=== PATIENT | male | born 1960 | race Caucasian/White ===

== ENCOUNTER 2017-02-02 05:40 | Emergency (ER) | payer OTHER ==
[2017-02-02 06:18] LABS: Hematocrit 46.4 % (42.0-52.0); Hemoglobin 16.1 gm/dL (13.5-18.0); Mean Cell Volume 87.9 fl (78-100); Mean Corpuscular Hemoglobin 30.5 pg (27-31); Mean Corpuscular Hgb Conc 34.7 g/dl (32-36); Mean Platelet Volume 9.1 fl (6.0-9.5); Neutrophil # 5.3 K/mm3 (1.3-6.0); Neutrophil % 61.5 % (42-75.0); Platelet Count 239 K/mm3 (150-450); Red Blood Count 5.28 M/mm3 (4.7-6.0); White Blood Count 8.6 K/mm3 (4.0-10.5)
[2017-02-02 06:29] LABS: Hemoglobin A1C 6.1 % (4.00-6.0)
[2017-02-02 06:39] LABS: Albumin * 3.6 gm/dl (3.4-5.0); Anion Gap 12.9 mmol/L (6.8-13.8); BUN/Creatinine Ratio 26.3 (9.0-21.6); Bilirubin, Total 0.9 mg/dL (0.0-1.1); Ca. Corrected For Albumin 8.5 mg/dL (8.4-10.2); Calcium * 8.5 mg/dL (7.9-10.9); Carbon Dioxide 27.4 mmol/L (24-32.6); Potassium 4.3 mmol/L (3.4-4.6); Total Protein 6.9 gm/dL (6.2-8.2)
--- OUTSIDE RECORDS SUMMARY | 2017-02-02 06:48 | XMS REPORT | Continuity of Care Document ---
:1960 Author Organization [facility] ([facility]) Address [address] [place] [address] Phone [phone] Care Team Providers Name Role Phone Provider, No-Primary Care Primary Care Provider Unavailable Source Comments This disclosure is being made pursuant to the Care Everywhere program, applicable federal and state laws, and may not contain all informaitonavailable regarding this patient.[facility] ([facility]) Active Allergies and Adverse Reactions No Known Allergies Current Medications Prescription Sig. Disp. Refills Start Date End Date Status risperiDONE (RISPERDAL) Take 0.5 mg by mouth Active 0.5 mg tablet at bedtime. Indications: DEPRESSION ASSOCIATED WITH MANIC DEPRESSIVE DISORDER mirtazapine (REMERON) Take 15 mg by mouth Active 15 mg tablet at bedtime. Indications: MAJOR DEPRESSIVE DISORDER, POST TRAUMATIC STRESS DISORDER aspirin 81 mg tablet Take 81 mg by mouth Active daily. Indications: MYOCARDIAL INFARCTION PREVENTION MULTIVITAMIN PO Take 1 Tab by mouth Active daily. DOCOSAHEXANOIC ACID/EPA Take 2 Tabs by mouth Active (FISH OIL PO) at bedtime. acetaminophen (TYLENOL) Take 325 mg by mouth Active 325 mg tablet every 4 hours as needed. 1-2 tabs every 4-6 hours PRN: pain or temp Indications: FEVER, PAIN ibuprofen 200 mg tablet Take 200 mg by mouth Active every 4 hours as needed. 1-2 tabs every 4-6 hours PRN inflammation or pain Indications: FEVER, PAIN loperamide 2 mg tablet Take 2 mg by mouth 4 Active times daily as needed. 1 tab after first loose stool then 1mg after each loose stool no more than 4mg per day PRN diarrhea Indications: DIARRHEA magnesium hydroxide Take 30 mL by mouth Active (MILK OF MAGNESIA at bedtime as CONCENTRATE) 2,400 needed. Indications: mg/10 mL suspension CONSTIPATION CALCIUM CARBONATE/MAG Take 15 mL by mouth Active HYDROX (MYLANTA PO) every 2 hours as needed. PRN upset stomach diphenhydrAMINE Take 25 mg by mouth Active (BENADRYL) 25 mg every 6 hours as capsule needed. Pt can take 1-2 po every 6 hours PRN cold symptoms/agitation Indications: ALLERGIC REACTIONS, ALLERGIC RHINITIS, COUGH, SNEEZING GUAIFENESIN/DEXTROMETHO Take 5-10 mL by Active RPHAN (ROBITUSSIN-DM mouth every 4 hours PO) as needed. 1-2 tsp every 4 hours PRN cough Eucalyptus-Menthol by Mucous Membrane Active (COUGH DROPS) Lozg route every 1 hour as needed. 1 cough drop every hour up to 6 cough drops per day PRN cough ciprofloxacin 500 mg Take 1 Tab by mouth 15 Tab 0 09/11/2012 Active tablet 2 times daily. 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 Pulse 80 09/11/2012 10:37 AM LEAD INVESTIGATOR Temperature 37.1 C (98.7 F) 09/11/2012 10:37 AM LEAD INVESTIGATOR Respiratory Rate 16 09/11/2012 10:37 AM LEAD INVESTIGATOR Height 1.803 m (5' 11") 09/11/2012 10:37 AM LEAD INVESTIGATOR Weight 118.842 kg (262 lb) 09/11/2012 10:37 AM LEAD INVESTIGATOR Body Mass Index 36.56 09/11/2012 10:37 AM LEAD INVESTIGATOR Oxygen Saturation - - Plan of Care Health Maintenance Due Date Last Done Comments HCV Screening 1960 Hepatitis B Vaccine (1 of 3 - Primary Series) 1960 Tdap Vaccine 1972 Lipid Disorder Screening 1979 MMR Vaccine 1979 Td Vaccine 1979 Colonoscopy 2011 Prostate Cancer Screening 2011 Influenza Vaccine: Seasonal (#1) 04/30/2016 Results from Last 3 Months Not on file
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
[2017-02-02 08:16] LABS: Urine Bilirubin Negative (NEGATIVE); Urine Blood Negative /ul (NEGATIVE); Urine Ketone Negative (NEGATIVE); Urine Nitrite Negative (NEGATIVE); Urine Protein Negative (NEGATIVE); Urine Urobilinogen Normal (NORMAL)
[2017-02-02 08:26] LABS: Urine Appearance Clear; Urine Color Yellow
[2017-02-02 08:27] LABS: Urine Bacteria None Seen; Urine RBC None Seen /hpf (0-5); Urine WBC 0-5 /hpf (0-5)
[2017-02-02] MEDS ORDERED: ACYCLOVIR 200 MG CAPSULE PO ONE (08:36)
[2017-02-02] MEDS ORDERED: predniSONE 20 MG TABLET PO ONE (08:36)
[2017-02-02] MEDS ORDERED: ACYCLOVIR 200 MG CAPSULE ONE (08:49)
[2017-02-02] MEDS ORDERED: predniSONE 20 MG TABLET ONE (08:49)
[2017-02-02 15:39] VITALS: BP 176/101
== END 2017-02-02 09:08 | disposition home or self-care (01) ==
LOC: ER 05:40
DX: G51.0 Bell's palsy (principal)

== ENCOUNTER 2020-07-05 14:38 | Inpatient (IN) ==
[2020-07-05] MEDS ORDERED: NORMAL SALINE 1,000 ML IV ONE ×3 (15:26→18:50)
[2020-07-05 16:24] LABS: Hematocrit 52.8 % (42.0-52.0); Hemoglobin 17.6 gm/dL (13.5-18.0); Mean Cell Volume 89.5 fl (78-100); Mean Corpuscular Hemoglobin 29.8 pg (27-31); Mean Corpuscular Hgb Conc 33.3 g/dl (32-36); Mean Platelet Volume 9.8 fl (8-11.3); Neutrophil # 11.9 K/mm3 (1.3-6.0); Neutrophil % 91.5 % (42-75.0); Platelet Count 222 K/mm3 (150-450); Red Cell Distribution Width 12.3 % (11.5-14.0)
[2020-07-05 16:29] LABS: Urine Bilirubin Negative (NEGATIVE); Urine Ketone Large mg/dL (NEGATIVE); Urine Nitrite Negative (NEGATIVE); Urine Protein Negative (NEGATIVE); Urine Urobilinogen Normal (NORMAL); Urine pH 5.5 pH (5.0-7.0)
[2020-07-05 16:55] LABS: Troponin I Less than 0.017 ng/mL (0.00-0.10)
[2020-07-05 17:00] LABS: ALT 40 U/L (19-67); AST 17 U/L (0-48); Albumin * 3.1 gm/dl (3.4-5.0); Alkaline Phosphatase * 108 U/L (50-170); Anion Gap 34.9 mmol/L (6.8-13.8); BNP * 10 pg/mL (5-175); BUN/Creatinine Ratio 24.8 (9.0-21.6); Bilirubin, Total 0.9 mg/dL (0.0-1.1); Blood Urea Nitrogen 34 mg/dL (6-23); CRP 2.7 mg/dL (0.0-0.9); Ca. Corrected For Albumin 9.2 mg/dL (8.4-10.2); Calcium * 8.8 mg/dL (7.9-10.9); Chloride 99 mmol/L (97-106); Potassium 4.9 mmol/L (3.4-4.6); Sodium 134 mmol/L (132-142); Total Protein 6.7 gm/dL (6.2-8.2)
[2020-07-05 17:02] LABS: Urine Appearance Clear (CLEAR); Urine Blood 5 /ul (NEGATIVE); Urine Color Yellow
[2020-07-05 17:03] LABS: Urine Bacteria TRACE; Urine Fine Granular Cast 0-5 /LPF; Urine RBC TRACE /hpf (0-5); Urine WBC TRACE /hpf (0-5)
[2020-07-05] MEDS ORDERED: INSULIN REGULAR, HUMAN 100 UNITS/ML VIAL IV ONE (17:20)
[2020-07-05 17:25] LABS: Glucose * 508 mg/dL (70-110)
--- NOTE | 2020-07-05 18:57 | ERNOTE ---
Medical Problem HPI - Narrative Date of Service: 07/05/20 - General Chief Complaint: Diabetes Related Problem Time Seen by Provider: 07/05/20 15:21 Source: patient Exam Limitations: no limitations - Immun/Allergies/Home Medications Immunizations: IMMUNIZATION HX Immunizations Up to Date Yes History of Influenza Vaccine Yes Hx Pneumococcal Vaccination No Allergies/Adverse Reactions: Allergies No Known Allergies Allergy (Verified 07/05/20 15:25) Home Medications: HOME MEDICATIONS Aspirin [Aspirin Enteric Coated] 81 mg PO DAILY 05/31/15 [Last Taken Unknown] Multivitamins [Multivitamin Ted] 1 cap PO DAILY 05/31/15 [Last Taken Unknown] [place]-3/Dha/Epa/Fish Oil [Fish Oil 500 mg Softgel] 1 ea PO DAILY 05/31/15 [Last Taken Unknown] Saw [place]/Pumpkin/Pyg/Zn/B6 [Hm Saw [place] Complex Sftgel] 1 ea PO BID 05/31/15 [Last Taken Unknown] asmita.stocking,knee,reg,xlrg See Dose Instructions .ROUTE .MEDSUPPLY #12 ea 11/12/18 [Last Taken Unknown] arginine HCl (L-arginine) 1,000 mg tablet 1,000 mg PO BID #60 tab 08/03/19 [Last Taken Unknown] amlodipine 5 mg-benazepril 20 mg capsule 1 cap PO DAILY #90 cap 02/01/20 [Last Taken Unknown] atorvastatin 20 mg tablet 20 mg PO DAILY #90 tab 02/01/20 [Last Taken Unknown] ciclopirox 8 % topical solution 1 applic TP HS 84 Days #6.6 ml 02/17/20 [Last Taken Unknown] naproxen 500 mg tablet 500 mg PO BID PRN #60 tab 04/29/20 [Last Taken Unknown] - History of Present History Narrative: patint presents to ed with c/o weakness poly dyspia polyuria Timing: constant, getting worse Severity: moderate Modifying Factors - (Improves): Present: other - nothing Modifying Factors - (Worsens): Present: other - nothing Review of Systems - Review of Systems Constitutional: Present: See HPI, weakness, fatigue, malaise EYE: Present: no symptoms reported ENT: Present: no symptoms reported Respiratory: Present: no symptoms reported Cardiology: Present: no symptoms reported Gastrointestinal/Abdominal: Present: nausea, eating less, other - drinking more Genitourinary: Present: frequency Musculoskeletal: Present: no symptoms reported Skin: Present: no symptoms reported Neurological: Present: no symptoms reported Endocrine: Present: no symptoms reported Hematologic/Lymphatic: Present: no symptoms reported Psych: Present: no symptoms reported All Other Systems: All systems neg except as marked Medical History (Last Reviewed 07/05/20 @ 16:10 by Daya Lin RN) Onychomycosis (Chronic) Hypertension (Chronic) Onset Date: Unknown Hyperlipidemia (Chronic) Onset Date: Unknown Herpes zoster (Resolved) Onset Date: Unknown Fracture, open (Resolved) Onset Date: Unknown tibia, fibula-right Epicondylitis (Resolved) Onset Date: Unknown Depression (Chronic) Onset Date: Unknown Oseguera's palsy (Chronic) Onset Date: Unknown Anxiety disorder (Chronic) Onset Date: ~2012 Right ankle pain (Resolved) Onset Date: Unknown Oseguera's palsy (Acute) Surgical History: Surgical History (Last Reviewed 07/05/20 @ 16:10 by Daya Lin RN) H/O colonoscopy Onset Date: ~2014 Dr Walker-negative. Recheck in 10 years. H/O wisdom tooth extraction Onset Date: ~2009 History of open reduction and internal fixation (ORIF) procedure Onset Date: ~1979 right lower leg Family History: Family History (Last Reviewed 07/05/20 @ 16:10 by Daya Lin RN) Father Hypertension Mother Hypertension Diabetes Crohns disease Social History: (Last Reviewed 07/05/20 @ 16:10 by Daya Lin RN) Social History: adopted: No custodial: No Marital status: Single lives independently: Yes household members: none caregiver/support person: No current occupational status: unemployed, disabled current occupation: [employer] Highest education level completed: some college, no degree Service: No Tobacco: Smoking Status: Never smoker second hand exposure: Yes Alcohol: alcohol intake: current alcohol intake frequency: holiday/special occasion Substance Use: substance use type: does not use Dietary Habits: caffeine: Yes Type: tea Exercise: frequency: does not exercise Physical Exam - Physical Exam General Appearance: Present: moderate distress, anxious Head Exam: Present: normal inspection, no evidence of injury Eye Exam: Normal inspection: bilateral, PERRL: bilateral, EOMI: bilateral Ears, Nose, Throat: Present: normal ENT inspection, normal pharynx Neck: Present: normal inspection, nontender Respiratory: Present: no respiratory distress, normal breath sounds, no accessory muscle use, chest nontender, lungs clear Cardiovascular/Chest: Present: no murmur, normal peripheral pulses, tachycardia Gastrointestinal/Abdominal: Present: normal bowel sounds, nontender, nondistended, soft, no organomegaly Back Exam: Present: normal inspection, normal range of motion, no CVA tenderness, no vertebral tenderness Extremity Exam: Present: normal inspection, non-tender, normal range of motion, no edema Neurological Exam: Present: alert, oriented, normal mood/affect, no motor/sensory deficits Skin Exam: Present: normal color, warm/dry Lymphatic Exam: Present: no adenopathy Progress - Date and Time Seen: Date and Time: 07/05/20 18:54 patient improved discussed labs with patient, recommended admission, case discussed with dr garcia, patient accepted for admission - Results and Orders Patient's Lab Results:: I have reviewed the patient's lab results. - Vital Signs Patient's Vital Signs:: I have reviewed the patient's vital signs. Vital Signs: Vital Signs 07/05/20 14:50 07/05/20 15:10 07/05/20 15:25 Temperature 35.7 C L Pulse Rate 104 H 100 94 Respiratory Rate 36 H 34 H 31 H Blood Pressure 115/82 120/77 140/87 H O2 Sat by Pulse Oximetry 97 97 96 07/05/20 15:40 07/05/20 16:10 07/05/20 16:40 Temperature Pulse Rate 91 93 89 Respiratory Rate 21 H 29 H 20 Blood Pressure 143/87 H 177/94 H O2 Sat by Pulse Oximetry 99 98 98 07/05/20 18:00 Temperature Pulse Rate 93 Respiratory Rate 16 Blood Pressure 117/50 O2 Sat by Pulse Oximetry 98 - X-Ray X-Ray #1 X-Ray: chest Interpretation: Interp. by me - no acute process - Progress/Reassessment Chief Complaint: Diabetes Related Problem Progress:: Improved - Transfer of Care Expected Disposition: Admit Plan - Plan Plan: to admit to hospital Departure Clinical Impression: Diabetic keto-acidosis - Departure Disposition: Short Term Hospital Inpatient Condition: Serious Referrals: Jaida Clements, CHIDI [Primary Care Provider] -
[2020-07-05] MEDS ORDERED: INSULIN REGULAR, HUMAN 100 UNITS in NORMAL SALINE 100 ML IV PRN ×2 (19:20)
[2020-07-05] MEDS ORDERED: NAPROXEN 500 MG TABLET PO PRN (19:29)
[2020-07-05 19:33] LABS: Glucose * 382 mg/dL (70-110)
[2020-07-05 19:48] LABS: ALT 41 U/L (19-67); AST 19 U/L (0-48); Alkaline Phosphatase * 112 U/L (50-170); Anion Gap 31.8 mmol/L (6.8-13.8); BUN/Creatinine Ratio 29.7 (9.0-21.6); Bilirubin, Total 0.8 mg/dL (0.0-1.1); Blood Urea Nitrogen 33 mg/dL (6-23); Ca. Corrected For Albumin 8.9 mg/dL (8.4-10.2); Calcium * 8.4 mg/dL (7.9-10.9); Chloride 102 mmol/L (97-106); Potassium 4.8 mmol/L (3.4-4.6); Sodium 134 mmol/L (132-142); Total Protein 6.8 gm/dL (6.2-8.2)
--- NOTE | 2020-07-05 20:05 | HP ---
Chief Complaint - Chief Complaint Date of Service: 07/05/20 Time of Service: 19:51 Chief Complaint: I have had nausea weakness and body ache for more than 4 weeks. History of Present Illness: 59-year-old male with past medical history of hypertension, anxiety disorder, depression, hyperlipidemia, morbid obesity, was evaluated in the ER after he was sent for evaluation from his PCPs office when the patient was noted to be acutely ill. Patient reports over the past 4 to 5 weeks he has felt increasingly weak and nauseous, he also reports multiple episodes of nonbloody vomiting. The patient reports he has abdominal discomfort but no abdominal pain and he has noticed that his breath has developed a fruity odor. Patient denies ever being diagnosed with diabetes or any childhood diabetes but recalls being told that he needs to watch his diet. He reports normally he is disciplined on his diet and he tries to stay active by riding his bicycle or walking, however recently he has been eating sweets and drinking fruit juices or other sugary drinks. He suspects that this might have elevated his blood sugars. Patient has never been treated with oral diabetic medications or insulin. Once in the ER the patient was found to be in diabetic ketoacidosis when ketones were discovered in his serum and he had a pH of 7.1. Patient was treated with subcutaneous insulin and was started on IV fluids which she is tolerating withou t any issues. Currently he continues to complain of stomach upset and hunger but maintained stable vitals. He denies any fever or chills or cough or any sick contacts or any ill persons. In fact the patient reports that he hardly leaves his house since the coronavirus pandemic started so he doubts he has COVID. Medical History (Last Reviewed 07/05/20 @ 16:10 by Daya Lin RN) Onychomycosis (Chronic) Hypertension (Chronic) Onset Date: Unknown Hyperlipidemia (Chronic) Onset Date: Unknown Herpes zoster (Resolved) Onset Date: Unknown Fracture, open (Resolved) Onset Date: Unknown tibia, fibula-right Epicondylitis (Resolved) Onset Date: Unknown Depression (Chronic) Onset Date: Unknown Oseguera's palsy (Chronic) Onset Date: Unknown Anxiety disorder (Chronic) Onset Date: ~2012 Right ankle pain (Resolved) Onset Date: Unknown Oseguera's palsy (Acute) Surgical History: Surgical History (Last Reviewed 07/05/20 @ 16:10 by Daya Lin RN) H/O colonoscopy Onset Date: ~2014 Dr Walker-negative. Recheck in 10 years. H/O wisdom tooth extraction Onset Date: ~2009 History of open reduction and internal fixation (ORIF) procedure Onset Date: ~1979 right lower leg Family History: Family History (Last Reviewed 07/05/20 @ 16:10 by Daya Lin RN) Father Hypertension Mother Hypertension Diabetes Crohns disease Social History: (Last Reviewed 07/05/20 @ 16:10 by Daya Lin RN) Social History: adopted: No senior care: No Marital status: Single lives independently: Yes household members: none caregiver/support person: No current occupational status: unemployed, disabled current occupation: [employer] Highest education level completed: some college, no degree Service: No Tobacco: Smoking Status: Never smoker second hand exposure: Yes Alcohol: alcohol intake: current alcohol intake frequency: holiday/special occasion Substance Use: substance use type: does not use Dietary Habits: caffeine: Yes Type: tea Exercise: frequency: does not exercise Peds Patient Hx - Developmental: No Pertinent Hx Peds Patient Hx - Medical: No Pertinent Hx Peds Patient Hx - Cardiac/Respiratory: No Pertinent Hx Peds Patient Hx - Surgical: No Surgical History Patient History - Cancer: No Hx of Cancer Review Of Systems (GEN) - Review of Systems Generalized/Overall Review: Present: Weakness EENTM: Present: No Symptoms Reported Respiratory: Present: No Symptoms Reported Cardiac: Present: No Symptoms Reported Abdominal: Present: Nausea, Vomiting Genitourinary: Present: No Symptoms Reported Musculoskeletal: Present: No Symptoms Reported Neurological: Present: No Symptoms Reported Skin: Present: No Symptoms Reported Endocrine: Present: No Symptoms Reported Immunizations: IMMUNIZATION HX Immunizations Up to Date Yes History of Influenza Vaccine Yes Hx Pneumococcal Vaccination No Allergies/Adverse Reactions: Allergies Allergy/AdvReac Type Severity Reaction Status Date / Time No Known Allergies Allergy Verified 07/05/20 15:25 Home Medications: HOME MEDICATIONS Aspirin [Aspirin Enteric Coated] 81 mg PO DAILY 05/31/15 [Last Taken Unknown] Multivitamins [Multivitamin Ted] 1 cap PO DAILY 05/31/15 [Last Taken Unknown] [place]-3/Dha/Epa/Fish Oil [Fish Oil 500 mg Softgel] 1 ea PO DAILY 05/31/15 [Last Taken Unknown] Saw [place]/Pumpkin/Pyg/Zn/B6 [Hm Saw [place] Complex [facility]] 1 ea PO BID 05/31/15 [Last Taken Unknown] asmita.stocking,knee,reg,xlrg See Dose Instructions .ROUTE .MEDSUPPLY #12 ea 11/12/18 [Last Taken Unknown] arginine HCl (L-arginine) 1,000 mg tablet 1,000 mg PO BID #60 tab 08/03/19 [Last Taken Unknown] amlodipine 5 mg-benazepril 20 mg capsule 1 cap PO DAILY #90 cap 02/01/20 [Last Taken Unknown] atorvastatin 20 mg tablet 20 mg PO DAILY #90 tab 02/01/20 [Last Taken Unknown] ciclopirox 8 % topical solution 1 applic TP HS 84 Days #6.6 ml 02/17/20 [Last Taken Unknown] naproxen 500 mg tablet 500 mg PO BID PRN #60 tab 04/29/20 [Last Taken Unknown] Exam - Exam Vital Signs: Vital Signs - Last Taken Temp 36.8 C 07/05/20 18:51 Pulse 90 07/05/20 19:39 Resp 25 H 07/05/20 19:39 BP 124/86 07/05/20 19:39 Pulse Ox 100 07/05/20 19:39 Constitutional: Present: Alert, Oriented x3, Cooperative, Well developed, No distress, Morbidly obese ENT Exam: Present: normal ENT inspection, hearing grossly normal, pharynx normal, TMs normal Eye Exam: bilateral eye: normal inspection, PERRL, EOMI Neck: Present: non-tender, full range of motion, supple, normal inspection, trachea midline Back Exam: Present: normal inspection, no CVA tenderness, no vertebral tenderness Breasts: Present: Exam deferred, Nontender Respiratory: Present: chest non-tender, lungs clear, normal breath sounds, no respiratory distress, no accessory muscle use Cardiovascular/Chest: Present: normal peripheral pulses, regular rate, rhythm, no chest tenderness, no edema, no gallop, no JVD, no murmur, no rub Peripheral Pulses: dorsalis-pedis (R): 3+, dorsalis-pedis (L): 3+ Abdomen: Present: Normal bowel sounds, soft, nontender, nondistended, no rebound tenderness, no hepatospenomegaly, no masses, obese /Rectal: Present: Exam deferred Extremity: Present: normal range of motion, non-tender, normal inspection, no calf tenderness, lower extremity edema - 2+ bilateral lower extremity edema Skin Exam: Present: warm/dry, no cyanosis, other - Patient appears flushed Lymphatic: Present: no adenopathy Neurologic: Present: mixed crop farmer II-XII nml as tested, normal cerebellar test, no motor/sensory deficits, alert, normal mood/affect, oriented x 3 Appearance: Present: appropriate appearance, appropriate insight, neat, no memory impairment Eye contact: Present: cooperative, good eye contact, normal speech Thoughts: Present: normal thought pattern, no apparent hallucination Diagnostic Studies: Abnormal Lab Results 07/05/20 07/05/20 07/05/20 Range/Units 15:23 15:47 16:10 WBC 13.0 H (4.0-10.5) K/mm3 Hct 52.8 H (42.0-52.0) % Immature Gran % (Auto) 0.50 H (0.001-0.429) % Immature Gran # (Auto) 0.06 H (0.000-0.0310) K/mm3 Neutrophils % 91.5 H (42-75.0) % Lymphocytes % 3.0 L (20-51) % Neutrophils # 11.9 H (1.3-6.0) K/mm3 Lymphocytes # 0.39 L (1.5-3.5) k/mm3 pCO2 Less than 14.9 L* (35.0-48.0) mmHg pO2 130.1 H (83.0-108.0) mmHg HCO3 4.5 L (21.0-28.0) mmol/L Total CO2 4.9 L (19.0-24.0) mmol/L Base Excess -20.8 L (-2.0-3.0) mmol/L ABG pH 7.18 L* (7.35-7.45) Potassium (3.4-4.6) mmol/L Carbon Dioxide (24-32.6) mmol/L Anion Gap (6.8-13.8) mmol/L BUN (6-23) mg/dL Est GFR (Non-Af Amer) (60-130) mL/min BUN/Creatinine Ratio (9.0-21.6) Random Glucose (70-110) mg/dL C-Reactive Prot, Quant (0.0-0.9) mg/dL Albumin (3.4-5.0) gm/dl Procalcitonin (0.05-0.50) ng/mL Urine Glucose (UA) >=1000 H (NEGATIVE) mg/dL Urine Blood 5 H (NEGATIVE) /ul Fine Granular Casts 0-5 H (NONE) /LPF Serum Ketones (NEGATIVE) 07/05/20 07/05/20 07/05/20 Range/Units 16:10 16:10 18:15 WBC (4.0-10.5) K/mm3 Hct (42.0-52.0) % Immature Gran % (Auto) (0.001-0.429) % Immature Gran # (Auto) (0.000-0.0310) K/mm3 Neutrophils % (42-75.0) % Lymphocytes % (20-51) % Neutrophils # (1.3-6.0) K/mm3 Lymphocytes # (1.5-3.5) k/mm3 pCO2 (35.0-48.0) mmHg pO2 (83.0-108.0) mmHg HCO3 (21.0-28.0) mmol/L Total CO2 (19.0-24.0) mmol/L Base Excess (-2.0-3.0) mmol/L ABG pH (7.35-7.45) Potassium 4.9 H 4.8 H (3.4-4.6) mmol/L Carbon Dioxide Less than 5.0 L Less than 5.0 L (24-32.6) mmol/L Anion Gap 34.9 H 31.8 H (6.8-13.8) mmol/L BUN 34 H D 33 H (6-23) mg/dL Est GFR (Non-Af Amer) 57 L D (60-130) mL/min BUN/Creatinine Ratio 24.8 H 29.7 H (9.0-21.6) Random Glucose 508 H 382 H (70-110) mg/dL C-Reactive Prot, Quant 2.7 H (0.0-0.9) mg/dL Albumin 3.1 L 3.0 L (3.4-5.0) gm/dl Procalcitonin 0.00 L (0.05-0.50) ng/mL Urine Glucose (UA) (NEGATIVE) mg/dL Urine Blood (NEGATIVE) /ul Fine Granular Casts (NONE) /LPF Serum Ketones Positive - 40mg/dl H (NEGATIVE) Laboratory Results WBC 13.0 K/mm3 (4.0-10.5) H 07/05/20 16:10 RBC 5.90 M/mm3 (4.7-6.0) 07/05/20 16:10 Hgb 17.6 gm/dL (13.5-18.0) 07/05/20 16:10 Hct 52.8 % (42.0-52.0) H 07/05/20 16:10 MCV 89.5 fl (78-100) 07/05/20 16:10 MCH 29.8 pg (27-31) 07/05/20 16:10 MCHC 33.3 g/dl (32-36) 07/05/20 16:10 RDW 12.3 % (11.5-14.0) 07/05/20 16:10 Plt Count 222 K/mm3 (150-450) 07/05/20 16:10 MPV 9.8 fl (8-11.3) 07/05/20 16:10 Immature Gran % (Auto) 0.50 % (0.001-0.429) H 07/05/20 16:10 Immature Gran # (Auto) 0.06 K/mm3 (0.000-0.0310) H 07/05/20 16:10 Neutrophils % 91.5 % (42-75.0) H 07/05/20 16:10 Lymphocytes % 3.0 % (20-51) L 07/05/20 16:10 Monocytes % 4.8 % (0.0-9) 07/05/20 16:10 Eosinophils % 0.0 % (0.0-3.0) 07/05/20 16:10 Basophils % 0.2 % (0.0-1.0) 07/05/20 16:10 Nucleated RBC % 0.0 k/mm3 (0-1) 07/05/20 16:10 Neutrophils # 11.9 K/mm3 (1.3-6.0) H 07/05/20 16:10 Lymphocytes # 0.39 k/mm3 (1.5-3.5) L 07/05/20 16:10 Monocytes # 0.6 k/mm3 (0.0-1.0) 07/05/20 16:10 Eosinophils # 0.0 k/mm3 (0.0-0.7) 07/05/20 16:10 Absolute Basophils 0.0 k/mm3 (0.0-0.1) 07/05/20 16:10 pCO2 Less than 14.9 mmHg (35.0-48.0) L* 07/05/20 15:47 pO2 130.1 mmHg (83.0-108.0) H 07/05/20 15:47 HCO3 4.5 mmol/L (21.0-28.0) L 07/05/20 15:47 Total CO2 4.9 mmol/L (19.0-24.0) L 07/05/20 15:47 Base Excess -20.8 mmol/L (-2.0-3.0) L 07/05/20 15:47 ABG pH 7.18 (7.35-7.45) L* 07/05/20 15:47 ABG O2 Sat (Measured) 98.0 % (94.0-98.0) 07/05/20 15:47 Sodium 134 mmol/L (132-142) 07/05/20 18:15 Plasma Sodium 138 mmol/L (130-142) 07/05/20 18:15 Potassium 4.8 mmol/L (3.4-4.6) H 07/05/20 18:15 Chloride 102 mmol/L (97-106) 07/05/20 18:15 Carbon Dioxide Less than 5.0 mmol/L (24-32.6) L 07/05/20 18:15 Anion Gap 31.8 mmol/L (6.8-13.8) H 07/05/20 18:15 BUN 33 mg/dL (6-23) H 07/05/20 18:15 Creatinine 1.11 mg/dL (0.4-1.4) 07/05/20 18:15 Est GFR (Non-Af Amer) 72 mL/min (60-130) D 07/05/20 18:15 BUN/Creatinine Ratio 29.7 (9.0-21.6) H 07/05/20 18:15 Random Glucose 382 mg/dL (70-110) H 07/05/20 18:15 Lactic Acid, Venous 1.5 mmol/L (0.4-2.0) 07/05/20 16:10 Calcium 8.4 mg/dL (7.9-10.9) 07/05/20 18:15 Calcium Adj for Albumin 8.9 mg/dL (8.4-10.2) 07/05/20 18:15 Total Bilirubin 0.8 mg/dL (0.0-1.1) 07/05/20 18:15 AST 19 U/L (0-48) 07/05/20 18:15 ALT 41 U/L (19-67) 07/05/20 18:15 Alkaline Phosphatase 112 U/L (50-170) 07/05/20 18:15 Troponin I Less than 0.017 ng/mL (0.00-0.10) 07/05/20 16:10 C-Reactive Prot, Quant 2.7 mg/dL (0.0-0.9) H 07/05/20 16:10 B-Natriuretic Peptide 10 pg/mL (5-175) 07/05/20 16:10 Total Protein 6.8 gm/dL (6.2-8.2) 07/05/20 18:15 Albumin 3.0 gm/dl (3.4-5.0) L 07/05/20 18:15 Procalcitonin 0.00 ng/mL (0.05-0.50) L 07/05/20 16:10 Urine Color Yellow 07/05/20 15:23 Urine Appearance Clear (CLEAR) 07/05/20 15:23 Urine pH 5.5 pH (5.0-7.0) 07/05/20 15:23 Ur Specific [place] 1.020 SP.GR. (1.005-1.030) 07/05/20 15:23 Urine Protein Negative mg/dL (NEGATIVE) 07/05/20 15:23 Urine Glucose (UA) >=1000 mg/dL (NEGATIVE) H 07/05/20 15:23 Urine Ketones Large mg/dL (NEGATIVE) 07/05/20 15:23 Urine Blood 5 /ul (NEGATIVE) H 07/05/20 15:23 Urine Nitrate Negative (NEGATIVE) 07/05/20 15:23 Urine Bilirubin Negative mg/dl (NEGATIVE) 07/05/20 15:23 Urine Urobilinogen Normal EU/dl (NORMAL) 07/05/20 15:23 Ur Leukocyte Esterase Negative /ul (NEGATIVE) 07/05/20 15:23 Urine RBC Trace /hpf (0-5) 07/05/20 15:23 Urine WBC Trace /hpf (0-5) 07/05/20 15:23 Ur Epithelial Cells Trace /hpf (0-5) 07/05/20 15:23 Urine Bacteria Trace (NONE) 07/05/20 15:23 Fine Granular Casts 0-5 /LPF (NONE) H 07/05/20 15:23 Urine Culture Comments No culture indicated 07/05/20 15:23 Serum Ketones Positive - 40mg/dl (NEGATIVE) H 07/05/20 16:10 Influenza Type A Ag Negative (NEGATIVE) 07/05/20 15:54 Influenza Type B Ag Negative (NEGATIVE) 07/05/20 15:54 Assessment/Plan - Narrative Narrative: Patient was evaluated and medical chart was reviewed and decision to admit to [facility] for a diagnosis of diabetic ketoacidosis was made. Patient is currently receiving IV fluids and he was restarted on her insulin drip in an attempt to resolve his DKA. He has a significantly elevated anion gap and his blood sugars are still elevated, so we will monitor him with a CMP every 4 hours. We will also order periodic ABGs in order to evaluate his blood gases and to ensure resolution of his acidosis. Chest x-ray was negative for any acute findings and his UA was negative for UTI, the patient also denies any recent fever or chills so it does not appear at the moment that acute infection is the cause of his DKA. It is very possible that the patient had diabetes that was uncontrolled for prolonged period of time which was compounded by possible acute gastroenteritis sending him into DKA. But what ever the cause we will keep him overnight in order to resolve the DKA and for close monitoring. - Assessment/Plan (1) Nausea & vomiting Problem: Acute (2) Diabetic keto-acidosis Problem: Acute (3) Hypertension Problem: Chronic Qualifiers: (4) Hyperlipidemia Problem: Chronic Qualifiers:
[2020-07-05] MEDS ORDERED: INSULIN REGULAR, HUMAN 100 UNITS/ML VIAL ONE (21:02)
[2020-07-05] MEDS: PANTOPRAZOLE SODIUM 40 MG in NORMAL SALINE 100 ML IV SCH (21:30)
[2020-07-05] MEDS: CICLOPIROX APPL TP SCH (21:34)
[2020-07-05] MEDS: ARGININE 1000 MG PO SCH (21:34)
[2020-07-05] MEDS: POTASSIUM CHLORIDE 20 MEQ in NORMAL SALINE 1,000 ML IV SCH (21:53)
[2020-07-05 23:41] LABS: Albumin * 2.8 gm/dl (3.4-5.0); Anion Gap 26.8 mmol/L (6.8-13.8); Bilirubin, Total 0.6 mg/dL (0.0-1.1); Ca. Corrected For Albumin 8.3 mg/dL (8.4-10.2); Calcium * 7.7 mg/dL (7.9-10.9); Carbon Dioxide 9.5 mmol/L (24-32.6); Potassium 4.3 mmol/L (3.4-4.6); Total Protein 6.1 gm/dL (6.2-8.2)
[2020-07-06 03:40] LABS: Albumin * 2.7 gm/dl (3.4-5.0); Anion Gap 22.6 mmol/L (6.8-13.8); BUN/Creatinine Ratio 25.5 (9.0-21.6); Bilirubin, Total 0.7 mg/dL (0.0-1.1); Ca. Corrected For Albumin 8.7 mg/dL (8.4-10.2); Carbon Dioxide 13.8 mmol/L (24-32.6); Potassium 4.4 mmol/L (3.4-4.6)
[2020-07-06 06:23] LABS: Hematocrit 45.8 % (42.0-52.0); Hemoglobin 15.6 gm/dL (13.5-18.0); Mean Cell Volume 87.7 fl (78-100); Mean Corpuscular Hemoglobin 29.9 pg (27-31); Mean Corpuscular Hgb Conc 34.1 g/dl (32-36); Mean Platelet Volume 9.4 fl (8-11.3); Neutrophil # 8.9 K/mm3 (1.3-6.0); Neutrophil % 83.2 % (42-75.0); Platelet Count 197 K/mm3 (150-450); Red Blood Count 5.22 M/mm3 (4.7-6.0); Red Cell Distribution Width 12.6 % (11.5-14.0); White Blood Count 10.6 K/mm3 (4.0-10.5)
[2020-07-06 06:31] LABS: Albumin * 2.7 gm/dl (3.4-5.0); Anion Gap 24.1 mmol/L (6.8-13.8); BUN/Creatinine Ratio 23.5 (9.0-21.6); Bilirubin, Total 0.7 mg/dL (0.0-1.1); Ca. Corrected For Albumin 8.7 mg/dL (8.4-10.2); Potassium 4.1 mmol/L (3.4-4.6); Total Protein 5.9 gm/dL (6.2-8.2)
[2020-07-06] MEDS: PANTOPRAZOLE SODIUM 40 MG in NORMAL SALINE 100 ML IV SCH ×2 (08:00→19:40)
[2020-07-06] MEDS: POTASSIUM CHLORIDE 20 MEQ in NORMAL SALINE 1,000 ML IV SCH ×4 (08:08→08:33)
[2020-07-06] MEDS: ARGININE 1000 MG PO SCH ×2 (08:08→21:24)
[2020-07-06] MEDS ORDERED: POTASSIUM CHLORIDE 20 MEQ in NORMAL SALINE 1,000 ML IV SCH (08:30)
[2020-07-06] MEDS ORDERED: ROSUVASTATIN CALCIUM 10 MG TABLET PO SCH (09:00)
[2020-07-06] MEDS: ASPIRIN 81 MG TABLET.DR PO SCH (09:43)
[2020-07-06] MEDS: MULTIVITAMINS 1 CAP CAPSULE PO SCH (09:43)
[2020-07-06] MEDS: OMEGA-3 FATTY ACIDS 1 CAP CAPSULE PO SCH (09:44)
[2020-07-06] MEDS: ENALAPRIL MALEATE 20 MG TABLET PO SCH (09:44)
[2020-07-06] MEDS: ONDANSETRON HCL 4 MG TABLET PO PRN ×2 (09:44→17:07)
[2020-07-06] MEDS: amLODIPine BESYLATE 5 MG TABLET PO SCH (09:44)
--- NOTE | 2020-07-06 09:50 | PN ---
Subjective - Date and Time Seen Date: 07/06/20 Time: 09:42 Subjective Narrative: I still feel weak and nauseous. Objective Objective Narrative: 60-year-old male admitted for diabetic ketoacidosis and new onset type 2 diabetes was evaluated at bedside was found to be afebrile and in no acute distress. Patient continues to complain of nausea and dry mouth, so we will administer the antiemetic that was ordered yesterday and provide oral swabs to freshen his mouth. This morning he reports still feeling weak and unwell so it was explained to him that that is expected in DKA but he is clinically improving. The patient's anion gap is closing and his blood sugar levels are now under control, he is being followed with BMPs every 4 hours as well as ABGs. His last ABGs revealed improvement of his pH as well as his other blood gases. We will keep him on insulin drip until his anion gap closes and the patient can tolerate oral intake. - Review of Systems Generalized/Overall Review: Reports: Weakness EENTM: Reports: No Symptoms Reported Respiratory: Reports: No Symptoms Reported Cardiac: Reports: No Symptoms Reported Abdominal: Reports: Nausea Genitourinary Symptoms: Reports: No Symptoms Reported Musculoskeletal Complaints: Reports: No Symptoms Reported Neurological: Reports: No Symptoms Reported Skin: Reports: No Symptoms Reported Endocrine: Reports: No Symptoms Reported - Vitals Vitals: Last Vital Signs Temp 36.4 C 07/06/20 06:36 Pulse 94 07/06/20 06:36 Resp 18 07/06/20 06:36 BP 136/84 07/06/20 06:36 Pulse Ox 98 07/06/20 06:36 - Abnormal Lab Findings Abnormal Lab Findings: Abnormal Lab Results 07/05/20 07/05/20 07/05/20 Range/Units 15:23 15:47 16:10 WBC 13.0 H (4.0-10.5) K/mm3 Hct 52.8 H (42.0-52.0) % Immature Gran % (Auto) 0.50 H (0.001-0.429) % Immature Gran # (Auto) 0.06 H (0.000-0.0310) K/mm3 Neutrophils % 91.5 H (42-75.0) % Lymphocytes % 3.0 L (20-51) % Neutrophils # 11.9 H (1.3-6.0) K/mm3 Lymphocytes # 0.39 L (1.5-3.5) k/mm3 pCO2 Less than 14.9 L* (35.0-48.0) mmHg pO2 130.1 H (83.0-108.0) mmHg HCO3 4.5 L (21.0-28.0) mmol/L Total CO2 4.9 L (19.0-24.0) mmol/L Base Excess -20.8 L (-2.0-3.0) mmol/L ABG pH 7.18 L* (7.35-7.45) Sodium (132-142) mmol/L Plasma Sodium (130-142) mmol/L Potassium (3.4-4.6) mmol/L Chloride (97-106) mmol/L Carbon Dioxide (24-32.6) mmol/L Anion Gap (6.8-13.8) mmol/L BUN (6-23) mg/dL Est GFR (Non-Af Amer) (60-130) mL/min BUN/Creatinine Ratio (9.0-21.6) Random Glucose (70-110) mg/dL Calcium (7.9-10.9) mg/dL Calcium Adj for Albumin (8.4-10.2) mg/dL C-Reactive Prot, Quant (0.0-0.9) mg/dL Total Protein (6.2-8.2) gm/dL Albumin (3.4-5.0) gm/dl Procalcitonin (0.05-0.50) ng/mL Urine Glucose (UA) >=1000 H (NEGATIVE) mg/dL Urine Blood 5 H (NEGATIVE) /ul Fine Granular Casts 0-5 H (NONE) /LPF Serum Ketones (NEGATIVE) 07/05/20 07/05/20 07/05/20 Range/Units 16:10 16:10 18:15 WBC (4.0-10.5) K/mm3 Hct (42.0-52.0) % Immature Gran % (Auto) (0.001-0.429) % Immature Gran # (Auto) (0.000-0.0310) K/mm3 Neutrophils % (42-75.0) % Lymphocytes % (20-51) % Neutrophils # (1.3-6.0) K/mm3 Lymphocytes # (1.5-3.5) k/mm3 pCO2 (35.0-48.0) mmHg pO2 (83.0-108.0) mmHg HCO3 (21.0-28.0) mmol/L Total CO2 (19.0-24.0) mmol/L Base Excess (-2.0-3.0) mmol/L ABG pH (7.35-7.45) Sodium (132-142) mmol/L Plasma Sodium (130-142) mmol/L Potassium 4.9 H 4.8 H (3.4-4.6) mmol/L Chloride (97-106) mmol/L Carbon Dioxide Less than 5.0 L Less than 5.0 L (24-32.6) mmol/L Anion Gap 34.9 H 31.8 H (6.8-13.8) mmol/L BUN 34 H D 33 H (6-23) mg/dL Est GFR (Non-Af Amer) 57 L D (60-130) mL/min BUN/Creatinine Ratio 24.8 H 29.7 H (9.0-21.6) Random Glucose 508 H 382 H (70-110) mg/dL Calcium (7.9-10.9) mg/dL Calcium Adj for Albumin (8.4-10.2) mg/dL C-Reactive Prot, Quant 2.7 H (0.0-0.9) mg/dL Total Protein (6.2-8.2) gm/dL Albumin 3.1 L 3.0 L (3.4-5.0) gm/dl Procalcitonin 0.00 L (0.05-0.50) ng/mL Urine Glucose (UA) (NEGATIVE) mg/dL Urine Blood (NEGATIVE) /ul Fine Granular Casts (NONE) /LPF Serum Ketones Positive - 40mg/dl H (NEGATIVE) 07/05/20 07/05/20 07/06/20 Range/Units 22:57 23:22 02:47 WBC (4.0-10.5) K/mm3 Hct (42.0-52.0) % Immature Gran % (Auto) (0.001-0.429) % Immature Gran # (Auto) (0.000-0.0310) K/mm3 Neutrophils % (42-75.0) % Lymphocytes % (20-51) % Neutrophils # (1.3-6.0) K/mm3 Lymphocytes # (1.5-3.5) k/mm3 pCO2 19.1 L* 20.6 L (35.0-48.0) mmHg pO2 121.0 H (83.0-108.0) mmHg HCO3 5.9 L 9.6 L (21.0-28.0) mmol/L Total CO2 6.5 L 10.2 L (19.0-24.0) mmol/L Base Excess -21.6 L -14.5 L (-2.0-3.0) mmol/L ABG pH 7.11 L* 7.28 L (7.35-7.45) Sodium (132-142) mmol/L Plasma Sodium 145 H (130-142) mmol/L Potassium (3.4-4.6) mmol/L Chloride 110 H (97-106) mmol/L Carbon Dioxide 9.5 L (24-32.6) mmol/L Anion Gap 26.8 H (6.8-13.8) mmol/L BUN 29 H (6-23) mg/dL Est GFR (Non-Af Amer) (60-130) mL/min BUN/Creatinine Ratio 25.0 H (9.0-21.6) Random Glucose 259 H D (70-110) mg/dL Calcium 7.7 L (7.9-10.9) mg/dL Calcium Adj for Albumin 8.3 L (8.4-10.2) mg/dL C-Reactive Prot, Quant (0.0-0.9) mg/dL Total Protein 6.1 L (6.2-8.2) gm/dL Albumin 2.8 L (3.4-5.0) gm/dl Procalcitonin (0.05-0.50) ng/mL Urine Glucose (UA) (NEGATIVE) mg/dL Urine Blood (NEGATIVE) /ul Fine Granular Casts (NONE) /LPF Serum Ketones (NEGATIVE) 07/06/20 07/06/20 07/06/20 Range/Units 03:10 06:15 06:15 WBC 10.6 H (4.0-10.5) K/mm3 Hct (42.0-52.0) % Immature Gran % (Auto) 0.50 H (0.001-0.429) % Immature Gran # (Auto) 0.05 H (0.000-0.0310) K/mm3 Neutrophils % 83.2 H (42-75.0) % Lymphocytes % 10.3 L (20-51) % Neutrophils # 8.9 H (1.3-6.0) K/mm3 Lymphocytes # 1.09 L (1.5-3.5) k/mm3 pCO2 (35.0-48.0) mmHg pO2 (83.0-108.0) mmHg HCO3 (21.0-28.0) mmol/L Total CO2 (19.0-24.0) mmol/L Base Excess (-2.0-3.0) mmol/L ABG pH (7.35-7.45) Sodium 143 H (132-142) mmol/L Plasma Sodium 143 H 144 H (130-142) mmol/L Potassium (3.4-4.6) mmol/L Chloride 110 H 111 H (97-106) mmol/L Carbon Dioxide 13.8 L 12.0 L (24-32.6) mmol/L Anion Gap 22.6 H 24.1 H (6.8-13.8) mmol/L BUN 27 H 24 H (6-23) mg/dL Est GFR (Non-Af Amer) (60-130) mL/min BUN/Creatinine Ratio 25.5 H 23.5 H (9.0-21.6) Random Glucose 159 H D 189 H (70-110) mg/dL Calcium (7.9-10.9) mg/dL Calcium Adj for Albumin (8.4-10.2) mg/dL C-Reactive Prot, Quant (0.0-0.9) mg/dL Total Protein 6.0 L 5.9 L (6.2-8.2) gm/dL Albumin 2.7 L 2.7 L (3.4-5.0) gm/dl Procalcitonin (0.05-0.50) ng/mL Urine Glucose (UA) (NEGATIVE) mg/dL Urine Blood (NEGATIVE) /ul Fine Granular Casts (NONE) /LPF Serum Ketones (NEGATIVE) 07/06/20 Range/Units 07:17 WBC (4.0-10.5) K/mm3 Hct (42.0-52.0) % Immature Gran % (Auto) (0.001-0.429) % Immature Gran # (Auto) (0.000-0.0310) K/mm3 Neutrophils % (42-75.0) % Lymphocytes % (20-51) % Neutrophils # (1.3-6.0) K/mm3 Lymphocytes # (1.5-3.5) k/mm3 pCO2 23.2 L (35.0-48.0) mmHg pO2 (83.0-108.0) mmHg HCO3 11.1 L (21.0-28.0) mmol/L Total CO2 11.8 L (19.0-24.0) mmol/L Base Excess -13.1 L (-2.0-3.0) mmol/L ABG pH 7.30 L (7.35-7.45) Sodium (132-142) mmol/L Plasma Sodium (130-142) mmol/L Potassium (3.4-4.6) mmol/L Chloride (97-106) mmol/L Carbon Dioxide (24-32.6) mmol/L Anion Gap (6.8-13.8) mmol/L BUN (6-23) mg/dL Est GFR (Non-Af Amer) (60-130) mL/min BUN/Creatinine Ratio (9.0-21.6) Random Glucose (70-110) mg/dL Calcium (7.9-10.9) mg/dL Calcium Adj for Albumin (8.4-10.2) mg/dL C-Reactive Prot, Quant (0.0-0.9) mg/dL Total Protein (6.2-8.2) gm/dL Albumin (3.4-5.0) gm/dl Procalcitonin (0.05-0.50) ng/mL Urine Glucose (UA) (NEGATIVE) mg/dL Urine Blood (NEGATIVE) /ul Fine Granular Casts (NONE) /LPF Serum Ketones (NEGATIVE) - Exam Constitutional: Present: Alert, Oriented x3, Cooperative, Well developed, No distress, Morbidly obese ENT Exam: Present: normal ENT inspection, hearing grossly normal Neck: Present: non-tender, full range of motion, supple, normal inspection, trachea midline Breasts: Present: Exam deferred, Nontender Respiratory: Present: chest non-tender, lungs clear, normal breath sounds, no respiratory distress, no accessory muscle use Cardiovascular/Chest: Present: normal peripheral pulses, regular rate, rhythm, no chest tenderness, no edema, no gallop, no JVD, no murmur, no rub Abdomen: Present: Normal bowel sounds, soft, nontender, nondistended, no rebound tenderness, no hepatospenomegaly, no masses, obese /Rectal: Present: Exam deferred Extremity: Present: normal range of motion, non-tender, normal inspection, no pedal edema, no calf tenderness, normal capillary refill, pelvis stable Skin Exam: Present: normal color, warm/dry, no cyanosis Lymphatic: Present: no adenopathy Neurologic: Present: machine dyer II-XII nml as tested, normal cerebellar test, no motor/sensory deficits, alert, normal mood/affect, oriented x 3 Appearance: Present: appropriate appearance, appropriate insight, neat, no memory impairment Eye contact: Present: cooperative, good eye contact, normal speech Thoughts: Present: normal thought pattern, no apparent hallucination Assessment/Plan Plan Narrative: We will keep the patient on the insulin drip and continue monitoring with CMP and watch for closure of the anion gap. In the meantime the dietitian has been consulted to provide education and instruction for dealing with type 2 diabetes especially since the patient is newly diagnosed. It was explained to the patient that it is likely that he will be discharged on insulin which is normally done after diagnosis and treatment of DKA. - Problems/Diagnosis (1) Nausea & vomiting Problem: Acute (2) Diabetic keto-acidosis Problem: Acute (3) Hypertension Problem: Chronic Qualifiers: (4) Hyperlipidemia Problem: Chronic Qualifiers: (5) New onset type 2 diabetes mellitus Problem: Acute
[2020-07-06 11:19] LABS: Anion Gap 25.4 mmol/L (6.8-13.8); BUN/Creatinine Ratio 20.9 (9.0-21.6); Calcium * 7.9 mg/dL (7.9-10.9); Carbon Dioxide 11.8 mmol/L (24-32.6); Potassium 4.2 mmol/L (3.4-4.6)
[2020-07-06] MEDS ORDERED: POTASSIUM CHLORIDE 20 MEQ in 0.5 NORMAL SALINE 1,000 ML IV SCH (15:00)
[2020-07-06 15:06] LABS: Anion Gap 20.7 mmol/L (6.8-13.8); BUN/Creatinine Ratio 21.1 (9.0-21.6); Calcium * 7.8 mg/dL (7.9-10.9); Carbon Dioxide 15.2 mmol/L (24-32.6); Estimated Creat Clear 77.7; Potassium 3.9 mmol/L (3.4-4.6)
[2020-07-06] MEDS: INSULIN LISPRO 100 UNITS/ML VIAL SC SCH ×5 (16:07→23:21)
[2020-07-06] MEDS: POTASSIUM CHLORIDE 20 MEQ in DEXTROSE 5%-0.5 NORMAL SALINE 990 ML IV SCH ×2 (16:20→23:24)
[2020-07-06 18:58] LABS: Venous Blood Gas HCO3 11.6 mmol/L (22.0-29.0); Venous Blood Gas pH 7.32 (7.32-7.43)
[2020-07-06 19:13] LABS: Anion Gap 20.9 mmol/L (6.8-13.8); BUN/Creatinine Ratio 22.6 (9.0-21.6); Calcium * 8.2 mg/dL (7.9-10.9); Estimated Creat Clear 79.9; Potassium 3.9 mmol/L (3.4-4.6)
[2020-07-06] MEDS: ROSUVASTATIN CALCIUM 10 MG TABLET PO SCH (21:25)
[2020-07-06] MEDS: CICLOPIROX APPL TP SCH (21:25)
[2020-07-06 22:52] LABS: Venous Blood Gas pH 7.3 (7.32-7.43)
[2020-07-06 23:00] LABS: Anion Gap 15.9 mmol/L (6.8-13.8); BUN/Creatinine Ratio 18.8 (9.0-21.6); Calcium * 8.3 mg/dL (7.9-10.9); Carbon Dioxide 19.6 mmol/L (24-32.6); Estimated Creat Clear 75.6; Potassium 3.5 mmol/L (3.4-4.6)
[2020-07-07] MEDS: ACETAMINOPHEN 325 MG TABLET PO PRN ×2 (05:37→19:07)
[2020-07-07] MEDS: POTASSIUM CHLORIDE 20 MEQ in DEXTROSE 5%-0.5 NORMAL SALINE 990 ML IV SCH ×2 (06:18→16:02)
[2020-07-07 06:31] LABS: Anion Gap 14.6 mmol/L (6.8-13.8); BUN/Creatinine Ratio 19.6 (9.0-21.6); Calcium * 8.1 mg/dL (7.9-10.9); Estimated Creat Clear 87.3; Potassium 3.6 mmol/L (3.4-4.6)
[2020-07-07] MEDS: PANTOPRAZOLE SODIUM 40 MG in NORMAL SALINE 100 ML IV SCH ×2 (07:05→19:09)
[2020-07-07] MEDS: ASPIRIN 81 MG TABLET.DR PO SCH (09:10)
[2020-07-07] MEDS: ENALAPRIL MALEATE 20 MG TABLET PO SCH (09:11)
[2020-07-07] MEDS: MULTIVITAMINS 1 CAP CAPSULE PO SCH (09:11)
[2020-07-07] MEDS: amLODIPine BESYLATE 5 MG TABLET PO SCH (09:11)
[2020-07-07] MEDS: OMEGA-3 FATTY ACIDS 1 CAP CAPSULE PO SCH (09:11)
[2020-07-07] MEDS: ARGININE 1000 MG PO SCH ×2 (09:21→21:04)
[2020-07-07] MEDS: INSULIN LISPRO 100 UNITS/ML VIAL SC SCH ×4 (09:24→21:03)
--- NOTE | 2020-07-07 09:34 | PN ---
Subjective - Date and Time Seen Date: 07/07/20 Time: 09:25 Subjective Narrative: I still feel lousy and want to eat. Objective Objective Narrative: 60-year-old male admitted for diabetic ketoacidosis and new onset type 2 diabetes was evaluated at bedside was found to be afebrile and in no acute distress. Patient has shown some clinical improvement, his anion gap is resolving and his blood sugars are better controlled. The patient also reports less nausea and abdominal discomfort and is requesting food. Therefore after thorough bedside evaluation orders to start a diabetic diet was placed. In the meantime we will keep him on the insulin drip and start subcutaneous insulin 42- hour overlap. If he tolerates the food without any issues and his DKA continues to improve we will discontinue the drip and keep him on the subcutaneous insulin. - Review of Systems Generalized/Overall Review: Reports: No Symptoms Reported EENTM: Reports: No Symptoms Reported Respiratory: Reports: No Symptoms Reported Cardiac: Reports: No Symptoms Reported Abdominal: Reports: Nausea Genitourinary Symptoms: Reports: No Symptoms Reported Musculoskeletal Complaints: Reports: No Symptoms Reported Neurological: Reports: No Symptoms Reported Skin: Reports: No Symptoms Reported Endocrine: Reports: No Symptoms Reported - Vitals Vitals: Last Vital Signs Temp 36.4 C 07/07/20 07:00 Pulse 74 07/07/20 09:11 Resp 16 07/07/20 07:00 BP 135/74 07/07/20 09:11 Pulse Ox 95 07/07/20 07:00 - Abnormal Lab Findings Abnormal Lab Findings: Abnormal Lab Results 07/06/20 07/06/20 07/06/20 Range/Units 11:06 11:15 14:55 pCO2 25.6 L (35.0-48.0) mmHg pO2 78.9 L (83.0-108.0) mmHg HCO3 10.7 L (21.0-28.0) mmol/L Total CO2 11.4 L (19.0-24.0) mmol/L Base Excess -14.9 L (-2.0-3.0) mmol/L ABG pH 7.24 L (7.35-7.45) ABG O2 Sat (Measured) 93.8 L (94.0-98.0) % VBG O2 Saturation (94.0-98.0) % Sodium 144 H 146 H (132-142) mmol/L Plasma Sodium 146 H 148 H (130-142) mmol/L Chloride 111 H 114 H (97-106) mmol/L Carbon Dioxide 11.8 L 15.2 L (24-32.6) mmol/L Anion Gap 25.4 H 20.7 H (6.8-13.8) mmol/L BUN (6-23) mg/dL BUN/Creatinine Ratio (9.0-21.6) Random Glucose 223 H 205 H (70-110) mg/dL Calcium 7.8 L (7.9-10.9) mg/dL 07/06/20 07/06/20 07/06/20 Range/Units 15:04 18:52 18:52 pCO2 23.8 L 22.9 L (35.0-48.0) mmHg pO2 94.1 H (83.0-108.0) mmHg HCO3 11.5 L 11.6 L (21.0-28.0) mmol/L Total CO2 12.2 L 12.3 L (19.0-24.0) mmol/L Base Excess -12.8 L -12.2 L (-2.0-3.0) mmol/L ABG pH 7.30 L (7.35-7.45) ABG O2 Sat (Measured) (94.0-98.0) % VBG O2 Saturation (94.0-98.0) % Sodium 145 H (132-142) mmol/L Plasma Sodium 147 H (130-142) mmol/L Chloride 115 H (97-106) mmol/L Carbon Dioxide 13.0 L (24-32.6) mmol/L Anion Gap 20.9 H (6.8-13.8) mmol/L BUN 24 H (6-23) mg/dL BUN/Creatinine Ratio 22.6 H (9.0-21.6) Random Glucose 220 H (70-110) mg/dL Calcium (7.9-10.9) mg/dL 07/06/20 07/06/20 07/07/20 Range/Units 22:46 22:46 06:10 pCO2 32.9 L (35.0-48.0) mmHg pO2 (83.0-108.0) mmHg HCO3 16.0 L (21.0-28.0) mmol/L Total CO2 17.0 L (19.0-24.0) mmol/L Base Excess -9.2 L (-2.0-3.0) mmol/L ABG pH 7.30 L (7.35-7.45) ABG O2 Sat (Measured) (94.0-98.0) % VBG O2 Saturation 60.6 L (94.0-98.0) % Sodium 146 H 145 H (132-142) mmol/L Plasma Sodium 147 H 147 H (130-142) mmol/L Chloride 114 H 114 H (97-106) mmol/L Carbon Dioxide 19.6 L 20.0 L (24-32.6) mmol/L Anion Gap 15.9 H 14.6 H (6.8-13.8) mmol/L BUN (6-23) mg/dL BUN/Creatinine Ratio (9.0-21.6) Random Glucose 140 H D 198 H D (70-110) mg/dL Calcium (7.9-10.9) mg/dL - Exam Constitutional: Present: Alert, Oriented x3, Cooperative, Well developed, No distress, Morbidly obese ENT Exam: Present: normal ENT inspection, hearing grossly normal, pharynx normal, TMs normal Neck: Present: non-tender, full range of motion, supple, normal inspection, trachea midline Breasts: Present: Exam deferred, Nontender Respiratory: Present: chest non-tender, lungs clear, normal breath sounds, no respiratory distress, no accessory muscle use Cardiovascular/Chest: Present: normal peripheral pulses, regular rate, rhythm, no chest tenderness, no edema, no gallop, no JVD, no murmur, no rub Abdomen: Present: Normal bowel sounds, soft, nontender, nondistended, no rebound tenderness, no hepatospenomegaly, no masses, obese /Rectal: Present: Exam deferred Extremity: Present: normal range of motion, non-tender, normal inspection, no pedal edema, no calf tenderness, normal capillary refill, pelvis stable Skin Exam: Present: normal color, warm/dry, no cyanosis Lymphatic: Present: no adenopathy Neurologic: Present: hyperbaric nurse II-XII nml as tested, normal cerebellar test, no motor/sensory deficits, alert, normal mood/affect, oriented x 3 Appearance: Present: appropriate appearance, appropriate insight, neat, no memory impairment Eye contact: Present: cooperative, good eye contact, normal speech Thoughts: Present: normal thought pattern, no apparent hallucination Assessment/Plan Plan Narrative: We have initiated oral intake as well as a continuous insulin, will consider discontinuing the insulin drip on his next blood sugar check. We will also reevaluate the patient in the morning with morning labs. Discharge planning is underway to discharge patient home with diabetes equipment such as glucometer and strips as well as insulin. Patient was also evaluated by the dietitian who recommends further education on diabetes and how to check blood sugars regularly, so orders will be placed for him to follow-up with a dietitian on outpatient basis. - Problems/Diagnosis (1) Nausea & vomiting Problem: Acute (2) Diabetic keto-acidosis Problem: Acute (3) Hypertension Problem: Chronic Qualifiers: (4) Hyperlipidemia Problem: Chronic Qualifiers: (5) New onset type 2 diabetes mellitus Problem: Acute (6) Obesity (BMI 30.0-34.9) Problem: Chronic
[2020-07-07 12:46] LABS: Anion Gap 12.8 mmol/L (6.8-13.8); BUN/Creatinine Ratio 17.2 (9.0-21.6); Calcium * 8.2 mg/dL (7.9-10.9); Carbon Dioxide 21.7 mmol/L (24-32.6); Estimated Creat Clear 91.1; Potassium 3.5 mmol/L (3.4-4.6)
[2020-07-07] MEDS ORDERED: INSULIN GLARGINE,HUM.REC.ANLOG 100 UNITS/ML VIAL SC SCH (21:00)
[2020-07-07] MEDS: ROSUVASTATIN CALCIUM 10 MG TABLET PO SCH (21:03)
[2020-07-07] MEDS: CICLOPIROX APPL TP SCH (21:04)
[2020-07-08] MEDS: ONDANSETRON HCL 4 MG TABLET PO PRN (01:57)
[2020-07-08] MEDS: INSULIN LISPRO 100 UNITS/ML VIAL SC SCH ×2 (07:17→11:46)
[2020-07-08] MEDS: PANTOPRAZOLE SODIUM 40 MG in NORMAL SALINE 100 ML IV SCH (07:47)
[2020-07-08] MEDS: OMEGA-3 FATTY ACIDS 1 CAP CAPSULE PO SCH (09:19)
[2020-07-08] MEDS: ASPIRIN 81 MG TABLET.DR PO SCH (09:19)
[2020-07-08] MEDS: amLODIPine BESYLATE 5 MG TABLET PO SCH (09:19)
[2020-07-08] MEDS: ENALAPRIL MALEATE 20 MG TABLET PO SCH (09:20)
[2020-07-08] MEDS: MULTIVITAMINS 1 CAP CAPSULE PO SCH (09:20)
[2020-07-08] MEDS: ARGININE 1000 MG PO SCH (09:26)
--- NOTE | 2020-07-08 09:27 | DS ---
(1) Nausea & vomiting Problem: Resolved (2) Diabetic keto-acidosis Problem: Resolved (3) Hypertension Problem: Chronic Qualifiers: (4) Hyperlipidemia Problem: Chronic Qualifiers: (5) New onset type 2 diabetes mellitus Problem: Acute (6) Obesity (BMI 30.0-34.9) Problem: Chronic Date of Discharge:: 07/08/20 Hospital Course: 60-year-old male admitted for diabetic ketoacidosis, dehydration, and new onset type 2 diabetes was evaluated at bedside was found to be afebrile and in no acute distress. With aggressive treatment the patient's DKA has resolved and he shows great clinical improvement. He is fully alert and oriented x3 and maintained stable vitals. The patient's anion gap closed yesterday and his blood sugars have stabilized. His insulin drip was discontinued and the patient was transitioned to subcutaneous insulin which he is tolerating without any issues. The dietitian was consulted to provide education on type 2 diabetes and a diabetic diet in order to control his blood sugars, and she recommends further follow-up on outpatient basis to continue educating and monitoring him. We will set that up on discharge. We are discharging the patient home with long-acting and short acting insulin, and we are also providing the patient with diabetes supplies which include a glucometer, test strips, and lancets. Prescriptions were sent to pharmacy. He is also instructed to follow-up with his PCP in the next 3 to 5 days. In the meantime he is to check his blood sugars 4 times a day once in the morning and once before every meal. He will be provided with a discharge summary explaining all of these directions. Procedures Performed: none Results and Findings: Pending Mircobiology Results 07/05/20 18:15 Blood Blood Culture - Preliminary NO GROWTH AFTER 48 HOURS 07/05/20 16:10 Blood Blood Culture - Preliminary NO GROWTH AFTER 48 HOURS Lab Pending Results 07/05/20 15:23: Urine Color Yellow, Urine Appearance Clear, Urine pH 5.5, Ur Specific [place] 1.020, Urine Protein Negative, Urine Glucose (UA) >=1000 H, Urine Ketones Large, Urine Blood 5 H, Urine Nitrate Negative, Urine Bilirubin Negative, Urine Urobilinogen Normal, Ur Leukocyte Esterase Negative, Urine RBC Trace, Urine WBC Trace, Ur Epithelial Cells Trace, Urine Bacteria Trace, Fine G ranular Casts 0-5 H, Urine Culture Comments No culture indicated 07/05/20 15:47: pCO2 Less than 14.9 L*, pO2 130.1 H, HCO3 4.5 L, Total CO2 4.9 L, Base Excess -20.8 L, ABG pH 7.18 L*, ABG O2 Sat (Measured) 98.0 07/05/20 15:54: Influenza Type A Ag Negative, Influenza Type B Ag Negative 07/05/20 16:10: WBC 13.0 H, RBC 5.90, Hgb 17.6, Hct 52.8 H, MCV 89.5, MCH 29.8, MCHC 33.3, RDW 12.3, Plt Count 222, MPV 9.8, Immature Gran % (Auto) 0.50 H, Immature Gran # (Auto) 0.06 H, Neutrophils % 91.5 H, Lymphocytes % 3.0 L, Monocytes % 4.8, Eosinophils % 0.0, Basophils % 0.2, Nucleated RBC % 0.0, Neutrophils # 11.9 H, Lymphocytes # 0.39 L, Monocytes # 0.6, Eosinophils # 0.0, Absolute Basophils 0.0 07/05/20 16:10: Sodium 134, Plasma Sodium 141, Potassium 4.9 H, Chloride 99, Carbon Dioxide Less than 5.0 L, Anion Gap 34.9 H, BUN 34 H D, Creatinine 1.37 D, Est GFR (Non-Af Amer) 57 L D, BUN/Creatinine Ratio 24.8 H, Random Glucose 508 H, Calcium 8.8, Calcium Adj for Albumin 9.2, Total Bilirubin 0.9, AST 17, ALT 40, Alkaline Phosphatase 108, Troponin I Less than 0.017, C-Reactive Prot, Quant 2.7 H, B-Natriuretic Peptide 10, Total Protein 6.7, Albumin 3.1 L, Serum Ketones Positive - 40mg/dl H 07/05/20 16:10: Lactic Acid, Venous 1.5 07/05/20 16:10: Procalcitonin 0.00 L 07/05/20 18:15: Sodium 134, Plasma Sodium 138, Potassium 4.8 H, Chloride 102, Carbon Dioxide Less than 5.0 L, Anion Gap 31.8 H, BUN 33 H, Creatinine 1.11, Est GFR (Non-Af Amer) 72 D, BUN/Creatinine Ratio 29.7 H, Random Glucose 382 H, Calcium 8.4, Calcium Adj for Albumin 8.9, Total Bilirubin 0.8, AST 19, ALT 41, Alkaline Phosphatase 112, Total Protein 6.8, Albumin 3.0 L 07/05/20 19:00: SARS-CoV-2 (PCR) Not detected 07/05/20 22:57: pCO2 19.1 L*, pO2 121.0 H, HCO3 5.9 L, Total CO2 6.5 L, Base Excess -21.6 L, ABG pH 7.11 L*, ABG O2 Sat (Measured) 97.1 07/05/20 23:22: Sodium 142, Plasma Sodium 145 H, Potassium 4.3, Chloride 110 H, Carbon Dioxide 9.5 L, Anion Gap 26.8 H, BUN 29 H, Creatinine 1.16, Est GFR (Non- Af Amer) 69, BUN/Creatinine Ratio 25.0 H, Random Glucose 259 H D, Calcium 7.7 L, Calcium Adj for Albumin 8.3 L, Total Bilirubin 0.6, AST 14, ALT 37, Alkaline Phosphatase 101, Total Protein 6.1 L, Albumin 2.8 L 07/06/20 02:47: pCO2 20.6 L, pO2 99.9, HCO3 9.6 L, Total CO2 10.2 L, Base Excess -14.5 L, ABG pH 7.28 L, ABG O2 Sat (Measured) 97.0 07/06/20 03:10: Sodium 142, Plasma Sodium 143 H, Potassium 4.4, Chloride 110 H, Carbon Dioxide 13.8 L, Anion Gap 22.6 H, BUN 27 H, Creatinine 1.06, Est GFR (Non-Af Amer) 76, BUN/Creatinine Ratio 25.5 H, Random Glucose 159 H D, Calcium 8.0, Calcium Adj for Albumin 8.7, Total Bilirubin 0.7, AST 20, ALT 37, Alkaline Phosphatase 87, Total Protein 6.0 L, Albumin 2.7 L 07/06/20 06:15: WBC 10.6 H, RBC 5.22, Hgb 15.6, Hct 45.8, MCV 87.7, MCH 29.9, MCHC 34.1, RDW 12.6, Plt Count 197, MPV 9.4, Immature Gran % (Auto) 0.50 H, Immature Gran # (Auto) 0.05 H, Neutrophils % 83.2 H, Lymphocytes % 10.3 L, Monocytes % 5.6, Eosinophils % 0.1, Basophils % 0.3, Nucleated RBC % 0.0, Neutrophils # 8.9 H, Lymphocytes # 1.09 L, Monocytes # 0.6, Eosinophils # 0.0, Absolute Basophils 0.0 07/06/20 06:15: Sodium 143 H, Plasma Sodium 144 H, Potassium 4.1, Chloride 111 H, Carbon Dioxide 12.0 L, Anion Gap 24.1 H, BUN 24 H, Creatinine 1.02, Est GFR (Non-Af Amer) 79, BUN/Creatinine Ratio 23.5 H, Random Glucose 189 H, Calcium 8.0, Calcium Adj for Albumin 8.7, Total Bilirubin 0.7, AST 15, ALT 35, Alkaline Phosphatase 91, Total Protein 5.9 L, Albumin 2.7 L 07/06/20 07:17: pCO2 23.2 L, pO2 96.5, HCO3 11.1 L, Total CO2 11.8 L, Base Excess -13.1 L, ABG pH 7.30 L, ABG O2 Sat (Measured) 96.8 07/06/20 11:06: Sodium 144 H, Plasma Sodium 146 H, Potassium 4.2, Chloride 111 H, Carbon Dioxide 11.8 L, Anion Gap 25.4 H, BUN 23, Creatinine 1.10, Est GFR (Non-Af Amer) 73, BUN/Creatinine Ratio 20.9, Random Glucose 223 H, Calcium 7.9 07/06/20 11:15: pCO2 25.6 L, pO2 78.9 L, HCO3 10.7 L, Total CO2 11.4 L, Base Excess -14.9 L, ABG pH 7.24 L, ABG O2 Sat (Measured) 93.8 L 07/06/20 14:55: Sodium 146 H, Plasma Sodium 148 H, Potassium 3.9, Chloride 114 H, Carbon Dioxide 15.2 L, Anion Gap 20.7 H, BUN 23, Creatinine 1.09, Est GFR (Non-Af Amer) 74, BUN/Creatinine Ratio 21.1, Random Glucose 205 H, Calcium 7.8 L 07/06/20 15:04: pCO2 23.8 L, pO2 89.6, HCO3 11.5 L, Total CO2 12.2 L, Base Excess -12.8 L, ABG pH 7.30 L, ABG O2 Sat (Measured) 96.3 07/06/20 18:52: Sodium 145 H, Plasma Sodium 147 H, Potassium 3.9, Chloride 115 H, Carbon Dioxide 13.0 L, Anion Gap 20.9 H, BUN 24 H, Creatinine 1.06, Est GFR (Non-Af Amer) 76, BUN/Creatinine Ratio 22.6 H, Random Glucose 220 H, Calcium 8.2 07/06/20 18:52: pCO2 22.9 L, pO2 94.1 H, HCO3 11.6 L, Total CO2 12.3 L, Base Excess -12.2 L, ABG pH 7.32, VBG O2 Saturation 96.8 07/06/20 22:46: Sodium 146 H, Plasma Sodium 147 H, Potassium 3.5, Chloride 114 H, Carbon Dioxide 19.6 L, Anion Gap 15.9 H, BUN 21, Creatinine 1.12, Est GFR (Non-Af Amer) 71, BUN/Creatinine Ratio 18.8, Random Glucose 140 H D, Calcium 8.3 07/06/20 22:46: pCO2 32.9 L, pO2 34.2, HCO3 16.0 L, Total CO2 17.0 L, Base Excess -9.2 L, ABG pH 7.30 L, VBG O2 Saturation 60.6 L 07/07/20 06:10: Sodium 145 H, Plasma Sodium 147 H, Potassium 3.6, Chloride 114 H, Carbon Dioxide 20.0 L, Anion Gap 14.6 H, BUN 19, Creatinine 0.97, Est GFR (Non-Af Amer) 84, BUN/Creatinine Ratio 19.6, Random Glucose 198 H D, Calcium 8.1 07/07/20 12:35: Sodium 141, Plasma Sodium 144 H, Potassium 3.5, Chloride 110 H, Carbon Dioxide 21.7 L, Anion Gap 12.8, BUN 16, Creatinine 0.93, Est GFR (Non-Af Amer) 88, BUN/Creatinine Ratio 17.2, Random Glucose 283 H D, Calcium 8.2 Discharge Location: Home Disposition: Home self-care Condition: Stable Face to Face Encounter completed per CMS Guidelines: No Discharge Activity: Activity as tolerated Discharge Diet: Consistent carbs Referrals: [place],Jaida, [employer] [Primary Care Provider] - Prescriptions (Any new or edited meds): Insulin Detemir [Levemir Flextouch] 30 unit SQ HS #3 [email or web address] Transmission Status: Pending to [facility], [place], [place] Complete Home Medications List: Complete Home Medication List: Aspirin [Aspirin Enteric Coated] 81 mg PO DAILY 05/31/15 Multivitamins [Multivitamin Ted] 1 cap PO DAILY 05/31/15 [place]-3/Dha/Epa/Fish Oil [Fish Oil 500 mg Softgel] 1 ea PO DAILY 05/31/15 Saw Christopher/Pumpkin/Pyg/Zn/B6 [Hm Saw Christopher Complex Sftgel] 1 ea PO BID 05/31/15 asmita.stocking,knee,reg,xlrg See Dose Instructions .ROUTE .MEDSUPPLY #12 ea 11/12/18 arginine HCl (L-arginine) 1,000 mg tablet 1,000 mg PO BID #60 tab 08/03/19 amlodipine 5 mg-benazepril 20 mg capsule 1 cap PO DAILY #90 cap 02/01/20 atorvastatin 20 mg tablet 20 mg PO DAILY #90 tab 02/01/20 ciclopirox 8 % topical solution 1 applic TP HS 84 Days #6.6 ml 02/17/20 naproxen 500 mg tablet 500 mg PO BID PRN #60 tab 04/29/20 blood sugar diagnostic See Rx Instructions .ROUTE .MEDSUPPLY #100 ea 07/07/20 blood-glucose meter See Rx Instructions .ROUTE .MEDSUPPLY #1 ea 07/07/20 insulin syringe-needle U-100 1 mL 25 gauge x 5/8" See Rx Instructions .ROUTE .MEDSUPPLY #100 ea 07/07/20 lancets 30 gauge See Rx Instructions .ROUTE .MEDSUPPLY #100 ea 07/07/20 Enalapril Maleate [Vasotec] 20 mg PO DAILY tab 07/08/20 Insulin Detemir [Levemir Flextouch] 30 unit SQ HS #3 insuln.pen 07/08/20 Insulin Lispro [Humalog] 14 units SC ACHSINS vial 07/08/20 Forms: Patient Portal Registration
[2020-07-08 14:50] VITALS: BP 114/64
== END 2020-07-08 15:38 | disposition home or self-care (01) | DRG 639 ==
LOC: ER 14:38 → MS 18:48
PROVIDERS: ADMIT Family Medicine; ATTEND Family Medicine